=== PATIENT | female | born 1990 | race Native Hawaiian/Other Pacific Islander ===

== ENCOUNTER 2022-08-21 17:37 | Outpatient (CLI) | payer OTHER | END 2022-08-21 22:58 | disposition home or self-care (01) | LOC: RAD 17:37 | PROVIDERS: ATTEND Physician Assistant | DX: M54.2 Cervicalgia (principal) ==

== ENCOUNTER 2022-08-27 09:05 | Outpatient (CLI) | payer OTHER | END 2022-08-27 17:00 | disposition home or self-care (01) | LOC: US 09:05 | PROVIDERS: ATTEND Nurse Practitioner Family | DX: N92.0 Excessive and frequent menstruation with regular cycle (principal) ==